=== PATIENT | male | born 1975 | race Caucasian/White ===

== ENCOUNTER 2024-12-25 21:35 | Emergency (ER) | payer MEDICAID, SELFPAY ==
[2024-12-25 21:40] VITALS: BP 136/88; PULSE 57; RESP 16; TEMP 36.4; O2SAT 95
--- NOTE | 2024-12-25 22:15 | DI.CT_ITS ---
Exam(s) CT HEAD WO EXAM: CT HEAD WO CLINICAL HISTORY: vision changes. TECHNIQUE: Imaging Protocol: Axial computed tomography images with coronal and sagittal reformatted images were created and reviewed COMPARISON: No exams were available for comparison FINDINGS: Ventricles and Extra axial spaces: Normal in size and morphology for the patient's age. Hemorrhage: None. Cerebral parenchyma: There are parenchymal calcifications seen in the basal ganglia bilaterally and in the periventricular tissues adjacent to the anterior horn of the right lateral ventricle. There is no mass effect. No acute territorial infarct or acute mass effect is seen. Midline shift: None. Brainstem/Cerebellum: Normal. Calvarium: Normal. Visualized Paranasal sinuses/Mastoids: Clear. Soft Tissues: Unremarkable. IMPRESSION: 1. No acute intracranial process. 2. Parenchymal calcifications as described above. These are nonspecific. If further imaging is warranted, an MRI may be considered. 3. The preliminary [facility] report was reviewed. RADIATION DOSE DELIVERED: 867.55mGy.cm Total DLP DATA REPOSITORY: All CT scans at this facility are submitted to the National Radiology Data Registry (NRDR) Dose Index Registry (DIR) with the [employer] (ACR). RADIATION OPTIMIZATION: All CT scans at this facility use at least one of these dose optimization techniques: automated exposure control; mA and/or kV adjustment per patient size (includes targeted exams where dose is matched to clinical indication); or iterative reconstruction.
--- NOTE | 2024-12-25 22:22 | W.ED.GENAD ---
Discharge Plan Disposition Patient Disposition: Home Condition: Stable Discharge Details Clinical Impression: Alteration in vision Primary Care Provider: None,None ED Provider: Ehsan Cohen Home Meds and New Rx's Prescriptions: Continued ibuprofen [Advil] 200 mg Tablet 400 mg PO Q6H PRN acetaminophen 500 mg Capsule 1,000 mg PO Q6H PRN magnesium 500 mg tablet 500 mg PO DAILY albuterol sulfate [Ventolin HFA] 1 PUFF HFA aerosol inhaler 18 g Inhalation Q4H PRN PRN Discontinued [facility] Gummy Fish 35-25-5-113.5 mg tablet,chewable PO multivitamin Tablet 1 tab PO DAILY flaxseed 1,000 mg Capsule 1 mg PO DAILY No Action ascorbic acid (vitamin C) [Vitamin C] 500 mg Tablet 500 mg PO DAILY Discharge Instructions Additional Instructions: Your lab test was normal which screens for vasculitis. Your CAT scan did not show any concerning findings. I placed you on our follow-up list to try and see [facility] eye care as soon as possible. If you feel more ill or have new symptoms such as severe pain or vomiting return to the emergency department for reevaluation. HPI General Mode of arrival: ambulatory. Date/Time Provider Initiated Documentation: 12/25/24 21:37. Limitations to Documentation: no limitations. Information obtained by: patient. History of Present Illness 49 year old M presents to the emergency department with the chief complaint of left eye vision issue, Patient started experiencing this hour(s) (13) and it has been constant. No relieving factors improve symptom(s), No exacerbating factors reported . Patient did receive the following treatments prior to arrival, none Related Data Home Medications ?Medication ?Instructions ?Recorded ?Confirmed albuterol sulfate 90 mcg/actuation 18 g inhalation Q4H PRN PRN 06/15/12 12/25/24 aerosol inhaler (Ventolin HFA) acetaminophen 500 mg capsule 1,000 mg PO Q6H PRN 10/27/21 12/25/24 ascorbic acid (vitamin C) 500 mg 500 mg PO DAILY 10/27/21 12/25/24 tablet (Vitamin C) ibuprofen 200 mg tablet (Advil) 400 mg PO Q6H PRN 10/27/21 12/25/24 magnesium 500 mg tablet 500 mg PO DAILY 11/18/21 12/25/24 Allergies Allergy/AdvReac Type Severity Reaction Status Date / Time shellfish derived Allergy Severe Anaphylaxsi Unverified 12/25/24 21:47 s General Stated Complaint: EyeProblem PIETER: 3 Review of Systems All systems reviewed & are unremarkable except as noted in HPI and below Constitutional Constitutional: Denies chills and Denies fever(s) Eyes Eyes: Reports blurry vision, Reports change in vision and Denies loss of vision Gastrointestinal Gastrointestinal: Denies vomiting Neurologic Neurologic: Denies loss of vision Exam Const General: no acute distress Orientation: alert HENMT Head: normal to inspection Mouth: moist mucous membranes Eyes General: appearance normal, both eyes and all related structures Alignment and Position: alignment normal Periorbital: periorbital findings normal Eyelids: eyelids normal Conjunctivae: conjunctivae normal Sclera: sclerae normal Cornea: corneas normal Pupils: PERRL EOM: EOM intact bilaterally Direct ophthalmoscopy: normal light reflex, no papilledema and photophobia not present Neck Neck: normal visual inspection Resp Effort & Inspection: normal respiratory effort and able to speak in complete sentences Cardio Rate: regular rate Skin General skin exam: no rashes or lesions noted Neuro General: patient alert and patient oriented x3 Extrem General: normal to inspection Psych Mental Status: mental status grossly normal Course Vital Signs Vital signs: Vital Signs Temperature 36.4 C L 12/25/24 21:40 Pulse 57 L 12/25/24 21:40 Respiratory Rate 16 12/25/24 21:40 Blood Pressure 136/88 12/25/24 21:40 Pulse Oximetry 95 12/25/24 21:40 Temperature 36.4 C L 12/25/24 21:40 Temperature Source Oral 12/25/24 21:40 Pulse 57 L 12/25/24 21:40 Respiratory Rate 16 12/25/24 21:40 Blood Pressure 136/88 12/25/24 21:40 Blood Pressure Position Sitting 12/25/24 21:40 Pulse Oximetry 95 12/25/24 21:40 Oxygen Delivery Method Room Air 12/25/24 21:40 Oxygen Flow Rate 0 12/25/24 21:40 Pain Level 0 12/25/24 21:40 Medical Decision Making 49-year-old male with a history of asthma who states that he 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 Denies any symptoms in the right eye. Denies any loss of vision. He is 20/50 in the left eye and 20/20 in the right eye and states his left eye is normally mildly decreased from the right. No fevers or chills. He said a mild frontal headache but not severe and not the worst of his life. He is well-appearing. There is no visible deformity of the eye, there is no redness of the eye. He has no pain in the eye itself. He has full range of motion of the eye, pupils are equal and reactive to light, no temporal artery tenderness. The retina is normal in appearance, he has no hartman red spot to suggest central retinal artery occlusion, there is no blood under it to suggest retinal vein occlusion, no visible retinal detachment. Suspect he could have vitreous hemorrhage. He is concerned about a possible to have a CVA but advised that he usually affects both eyes when he has a CVA. I will check a CT head to exclude a mass though seems unlikely and also check a sed rate. Sed rate and head CT negative. Patient stable resting comfortably in bed in no distress. I am going to place him on the follow-up list to try and see [facility] eye care as soon as possible for recheck. Return precautions given Differential Diagnosis Differential Diagnosis: Vitreous hemorrhage, mass, floaters PFSH All Active Problems (Updated 12/25/24 @ 22:42 by Ehsan Cohen MD) Alteration in vision (Acute) Lumbar radiculopathy (Acute) Acute diverticulitis (Acute 04/25/14) Asthma (Chronic) Diverticulosis of colon (Chronic) H/O surgical procedure (Chronic) a. h/o inguinal hernia repair Diverticulitis large intestine (Acute) Diverticulitis (Acute) Medical History Asthma Diverticulosis Hypertension Low back pain Surgical History Colonoscopy - IV Sedation Repair of inguinal hernia Family History Father Myocardial infarction Social History Smoking/Tobacco Use Status: Never Smoking risk assessment performed?: Yes Alcohol Intake: never Drug use: Occasionally Substance use type: marijuana Housing: house Do you feel safe at home: Yes Do you feel safe in your relationship?: Yes
[2024-12-25 22:37] LABS: ESR 4 mm/hr (0-15)
--- NOTE | 2024-12-25 23:04 | DI.[facility]_ITS ---
PROCEDURE INFORMATION: Exam: CT Head Without Contrast Exam date and time: 12/25/2024 10:54 PM Age: 49 years old Clinical indication: Stroke-like symptoms; Visual disturbance TECHNIQUE: Imaging protocol: Computed tomography of the head without contrast. Other technique: STROKE PROTOCOL was implemented. COMPARISON: No relevant prior studies available. FINDINGS: Brain: Small parenchymal calcifications of the right head of the caudate, right frontal periventricular white matter, and bilateral globus pallidi. No intracranial hemorrhage or extra-axial fluid collection. No evidence of mass effect or midline shift. Wayne-white matter differentiation is intact. Cerebral ventricles: No ventriculomegaly. Paranasal sinuses: Unremarkable. No fluid levels. Mastoid air cells: Unremarkable. Bones: No acute calvarial fracture. Soft tissues: Scalp soft tissues are unremarkable. IMPRESSION: No acute intracranial pathology. ASPECTS score 10. Dictated and Authenticated by: Alexey Clinton MD. Orderin Vicki Moser MD
[2024-12-25 23:17] VITALS: BP 130/78; BP 136/88; PULSE 57; PULSE 60; RESP 16; TEMP 36.4; O2SAT 95; O2SAT 96
== END 2024-12-25 23:21 | disposition home or self-care (01) ==
LOC: ER 23:02
PROVIDERS: Emergency Provider Emergency Medicine
DX: H53.9 Unspecified visual disturbance (principal)
CPT/HCPCS: 99284; 99283; 36415; 85652; 70450

== ENCOUNTER 2025-01-27 16:13 | Emergency (ER) | payer MEDICAID, SELFPAY ==
[2025-01-27 16:14] VITALS: BP 165/109; PULSE 65; RESP 18; TEMP 36.2; O2SAT 98
--- NOTE | 2025-01-27 16:42 | W.ED.GENAD ---
Discharge Plan Disposition Patient Disposition: Home Condition: Stable Discharge Details Clinical Impression: Acute diverticulitis Primary Care Provider: None,None ED Provider: Jasen Leroy Home Meds and New Rx's Prescriptions: New amoxicillin-pot clavulanate 875-125 mg tablet 1 tab PO BID 10 Days Qty: 20 0RF ketorolac 10 mg tablet 10 mg PO QID 5 Days Qty: 20 0RF Rx Instructions: maximum total duration of 5 days from all oral, intranasal, or parenteral formulations Continued acetaminophen 500 mg Capsule 1,000 mg PO Q6H PRN Held ibuprofen [Advil] 200 mg Tablet 400 mg PO Q6H PRN Hold Instructions: Resume on 02/01/25. HOLD while on ketorolac Discharge Instructions Instructions: Ketorolac (Systemic), Diverticulitis, Amoxicillin and Clavulanate Additional Instructions: You were seen in the emergency department for abdominal pain onset today, CT shows acute diverticulitis without perforation or abscess, you have elevated white blood cells which is expected in the setting of this acute infection but your markers of sepsis are negative. Please watch yourself carefully and eat a bland diet over the next couple days, take 1000 mg of Tylenol every 6 hours, care home between Tylenol dosings please take the prescribed Toradol for anti-inflammatory effect, switch to ibuprofen once you run out of these after 5 days. Take the prescribed Augmentin as directed, return for any severe acute worsening especially with intractable nausea or vomiting or developing worsening abdominal pain with fever HPI General Date/Time Provider Initiated Documentation: 01/27/25 16:26. HPI Narrative: 49 year-old female presents to ED today by POV/ambulating with a chief complaint of LLQ abdominal pain, some intermittent sharp pains to scrotum with onset this morning. Quality described as worsened throughout the day, questions if this is diverticulitis as last exaceration was years ago, no radiation to chest pain, vomiting, complete constipation, endorses diarrhea, denies shortness of breath or fever. Severity is described as moderate. Palliating factors include nothing specific. Provoking factors include nothing specific. Events leading up to the incident/Associated Symptoms: Patient questions if this is from some fruit compote he had last night. Patient not anticoagulated. Related Data Home Medications ?Medication ?Instructions ?Recorded ?Confirmed acetaminophen 500 mg capsule 1,000 mg PO Q6H PRN 10/27/21 01/27/25 ibuprofen 200 mg tablet (Advil) 400 mg PO Q6H PRN 10/27/21 01/27/25 Held on 01/27/25. Instructions: Resume on 02/01/25. HOLD while on ketorolac amoxicillin 875 mg-potassium 1 tab PO BID 10 days #20 tabs 01/27/25 clavulanate 125 mg tablet ketorolac 10 mg tablet 10 mg PO QID 5 days #20 tabs 01/27/25 Previous Rx's ?Medication ?Instructions ?Recorded amoxicillin 875 mg-potassium 1 tab PO BID 10 days #20 tabs 01/27/25 clavulanate 125 mg tablet ketorolac 10 mg tablet 10 mg PO QID 5 days #20 tabs 01/27/25 Allergies Allergy/AdvReac Type Severity Reaction Status Date / Time shellfish derived Allergy Severe Anaphylaxsi Unverified 01/27/25 16:18 s General Stated Complaint: Abd Prob PIETER: 3 Review of Systems All systems reviewed & are unremarkable except as noted in HPI and below Exam Narrative Exam Narrative: GENERAL APPEARANCE: Well-nourished, non-toxic, awake and alert, atraumatic, no acute distress. SKIN: Warm, pink, dry, intact, without rashes/lesions/ulcerations. HEAD: Normocephalic, atraumatic, normal hair distribution for gender/age. EYES: Normal conjunctiva, no exudates on lids/lashes. ENT: Nares patent, no circumoral cyanosis, no facial swelling NECK: Supple, trachea midline, painless cervical ROM. LUNGS/CHEST: Lungs CTA bilaterally- no rhonchi/rales/wheezes diffusely, non-labored respirations, normal A/P diameter, symmetrical expansion, no chest wall deformity HEART (CV/PV): Regular rate and rhythm without murmur, no peripheral edema, no JVD. ABDOMEN: Soft, non-distended, no guarding, left lower quadrant abdominal tenderness with rebound tenderness, no Rovsing's, no McBurney's point tenderness, negative King sign, no CVA tenderness percussion bilaterally. MSK: Normal ROM, no swelling/deformity to bilateral UEs or LEs, moving all extremities without weakness, no cyanosis, spine midline without tenderness, normal curvature. NEURO: Mental Status AAOx4 - alert to person, place, time, events No facial droop, no forehead involvement. Motor: No focal weakness - strength 5/5 in bilateral UEs and LEs, proximal and distal, symmetric. Sensory: sensation intact to light touch globally. Gait normal: patient ambulated without ataxia into ED room. PSYCH: euthymic, cooperative, pleasant, appropriate speech Course Vital Signs Vital signs: Vital Signs Temperature 36.2 C L 01/27/25 16:14 Pulse 65 01/27/25 16:14 Respiratory Rate 18 01/27/25 16:14 Blood Pressure 165/109 H 01/27/25 16:14 Pulse Oximetry 98 01/27/25 16:14 Temperature 36.2 C L 01/27/25 16:14 Pulse 65 01/27/25 16:14 Respiratory Rate 18 01/27/25 16:14 Blood Pressure 165/109 H 01/27/25 16:14 Pulse Oximetry 98 01/27/25 16:14 Oxygen Delivery Method Room Air 01/27/25 16:14 Oxygen Flow Rate 0 01/27/25 16:14 Pain Level 8 01/27/25 16:14 Medical Decision Making This dictation utilizes [id number] dictation software and may contain unedited grammatical errors. 49 year-old female presents to ED today by POV/ambulating with a chief complaint of LLQ abdominal pain, some intermittent sharp pains to scrotum with onset this morning. Quality described as worsened throughout the day, questions if this is diverticulitis as last exaceration was years ago, no radiation to chest pain, vomiting, complete constipation, endorses diarrhea, denies shortness of breath or fever. Severity is described as moderate. Palliating factors include nothing specific. Provoking factors include nothing specific. Events leading up to the incident/Associated Symptoms: Patient questions if this is from some fruit compote he had last night. Patients' medical history: History of bilateral mesh hernia repairs, history of diverticulitis, lumbar radiculopathy. Family and social history: Noncontributory has reduced his meat intake since prior episode of diverticulitis. Pertinent exam findings / vital signs include left lower quadrant abdominal tenderness with rebound tenderness, no Rovsing's, no McBurney's point tenderness, negative King sign, no CVA tenderness percussion bilaterally, benign cardiopulmonary exam, neuro intact, nontoxic and afebrile. Differential / pathologies of concern include diverticulitis, gastroenteritis, colitis, less likely SBO, unlikely hernia. Diagnostic studies of: - CBC, CMP, lactate, UA, lipase, magnesium, CT ABD/pelvis with contrast. - CBC shows leukocytosis to 17.06 without left shift - Lactate negative at 1.6 - CMP grossly unremarkable with mildly low magnesium, mildly low calcium, would replete with p.o. intake and multivitamin - UA is benign - Lipase negative - CT shows an uncomplicated sigmoid diverticulitis Interventions of: - 1 L IVF NS, 1 g IV Tylenol, 15 mg IV Toradol, 4 mg IV Zofran, 1 tablet of p.o. Augmentin with prescription to follow as well as prescription for Toradol. ED Course/Assessment/Plan: 49-year-old male presents with onset of moderate left lower abdominal pain today, questions diverticulitis with his history, CT shows uncomplicated sigmoid diverticulitis he does have leukocytosis but has no evidence of abscess or microperforations, his vitals are stable and nontoxic, counseled him on bland diet and prescription for Toradol and Augmentin with strict return criteria for any severe increase in pain especially fever or any other emergent concerns. Findings not consistent with peritoneal abdomen, microperforation or abscess, SBO, sepsis. Disposition of acute diverticulitis. Patient verbalized understanding of the plan and return to ED criteria and engaged in shared decision making. Medical Records Medical records reviewed: Yes I reviewed the patient's medical records. Imaging Data Radiologic Study: Attestation: I personally reviewed and interpreted this imaging study as follows: Imaging: CT Scan Radiologist's impression: EXAM: CT ABDOMEN PELVIS W CLINICAL HISTORY: LLQ tenderness. TECHNIQUE: Imaging Protocol: Axial computed tomography images with coronal and sagittal reformatted images were created and reviewed CONTRAST MATERIAL: Intravenous: Omnipaque 350 Contrast volume:75 ml Oral: no COMPARISON: CT ABD PELVIS WITH CONTRAST from 07/21/2016 FINDINGS: ABDOMEN and PELVIS: Lung Bases: No acute findings. Stable right lower lobe bronchiectasis. Liver: Normal density. No suspicious mass. Gallbladder and biliary tract: No radiodense calculus. No wall thickening or pericholecystic fluid. No biliary dilation. Pancreas: Normal density. No abnormal calcifications or inflammatory process. No evidence of mass. Spleen: Normal. Kidneys: Normal size, contour and axis. No radiodense stones. No obstructive uropathy. No suspicious masses seen. Adrenal glands: No masses seen. Vasculature: Abdominal aorta non-dilated. Soft tissues: Unremarkable. Bladder: Mild diffuse wall thickening. No calculi.No focal mass. Bowel: No obstruction. Severe diverticulosis of the descending and sigmoid colon. Wall thickening of the sigmoid with surrounding stranding, consistent with diverticulitis. No perforation or abscess. Appendix normal. Peritoneal cavity: No ascites. No focal collection. No free air. Bones: Unremarkable for age. Reproductive organs: Mildly enlarged prostate. Lymph nodes: No pathologically enlarged lymph nodes. IMPRESSION:: Diverticulitis of the sigmoid colon. No perforation or abcess. Findings called to ER provider. Lab Data Lab results reviewed: Yes I reviewed the patient's lab results. Labs: Laboratory Tests Range/Units 01/27/25 01/27/25 01/27/25 17:02 17:25 17:49 WBC (4.4-10.8) 10^3/uL 17.06 H RBC (4.36-5.78) 10^6/uL 5.81 H Hgb (13.5-17.5) g/dL 16.8 Hct (40.0-50.0) % 49.2 MCV (80-95) fL 85 MCH (27.0-33.0) pg 28.9 MCHC (32.0-36.0) % 34.1 RDW (11.8-14.1) % 13.1 Plt Count (130-400) 10^3/uL 217 MPV (8.0-11.0) fL 10.6 Immature Gran % % 0.5 Neutrophils % % 86.6 Lymphocytes % % 6.6 Monocytes % % 5.8 Eosinophils % % 0.1 Basophils % % 0.4 Nucleated RBC % (0.0-0.3) % 0.0 Absolute Neutrophils (1.2-6.7) 10^3/uL 14.77 H Absolute Lymphocytes (1.2-3.4) 10^3/uL 1.13 L Absolute Monocytes (0.1-0.8) 10^3/uL 0.99 H Absolute Eosinophils (0.0-0.7) 10^3/uL 0.02 Absolute Basophils (0.0-0.2) 10^3/uL 0.07 VBG Lactate (<or=2.0) mmol/L 1.6 Sodium Cancelled 136 Potassium Cancelled 4.0 Chloride Cancelled 101 Carbon Dioxide Cancelled 27.2 Anion Gap Cancelled 7.8 BUN Cancelled 12 Creatinine Cancelled 1.0 Est GFR (CKD-EPI 2020) Cancelled 91.69 Glucose Cancelled 115 H Calcium Cancelled 8.1 L Magnesium Cancelled 1.7 L Total Bilirubin Cancelled 0.8 AST Cancelled 18 ALT Cancelled 28 Alkaline Phosphatase Cancelled 118 H Total Protein Cancelled 7.2 Albumin Cancelled 3.7 Lipase Cancelled 34 Urine Color (Yellow) Yellow Urine Clarity (Clear) Clear Urine pH (5-8) 5.5 Ur Specific [place] (1.005-1.025) 1.010 Urine Protein (Neg-Trace) mg/dL Negative Urine Ketones (Negative) mg/dL Trace H Urine Blood (Negative) Trace-lysed H Urine Nitrite (Negative) Negative Urine Bilirubin (Negative) Negative Urine Urobilinogen (Up to 0.2) mg/dL 0.2 Ur Leukocyte Esterase (Negative) Negative Urine RBC (0-2) HPF 0-2 Urine WBC (0-5) HPF Negative Ur Epithelial Cells (Negative) HPF Rare Urine Crystals (Negative) HPF Negative Urine Bacteria (Negative) HPF Negative Urine Casts (Negative) LPF Negative Urine Mucus (Negative) Negative Ur Culture Indicated? No Urine Glucose (Negative) mg/dL Negative PFSH All Active Problems (Updated 01/27/25 @ 18:45 by VERONICA Ernandez) Lumbar radiculopathy (Acute) Acute diverticulitis (Acute 04/25/14) Asthma (Chronic) Diverticulosis of colon (Chronic) H/O surgical procedure (Chronic) a. h/o inguinal hernia repair Diverticulitis large intestine (Acute) Diverticulitis (Acute) Medical History Asthma Diverticulosis Hypertension Low back pain Surgical History Colonoscopy - IV Sedation Repair of inguinal hernia Family History Father Myocardial infarction Social History Smoking/Tobacco Use Status: Never Smoking risk assessment performed?: Yes Alcohol Intake: never Drug use: Occasionally Substance use type: marijuana Housing: house Do you feel safe at home: Yes Do you feel safe in your relationship?: Yes
[2025-01-27] MEDS: Normal Saline 1,000 ML 1000 ML IV (16:57)
[2025-01-27] MEDS: ACETAMINOPHEN 1,000 MG/100 ML BAG 400 MG IVPB (16:58)
[2025-01-27] MEDS: Ketorolac 15 MG/ML VIAL IVP (16:58)
[2025-01-27] MEDS: Ondansetron 4 MG/2 ML VIAL IVP (16:59)
[2025-01-27 17:08] LABS: Abs Immature Grans 0.08 10^3/uL (0.0-0.06); HCT 49.2 % (40.0-50.0); HGB 16.8 g/dL (13.5-17.5); Immature Grans % 0.5 %; MCH 28.9 pg (27.0-33.0); MCHC 34.1 % (32.0-36.0); MCV 85 fL (80-95); MPV 10.6 fL (8.0-11.0); Platelet Count 217 10^3/uL (130-400); RBC 5.81 10^6/uL (4.36-5.78); RDW 13.1 % (11.8-14.1); RDW-SD 39.8 fL; WBC 17.06 10^3/uL (4.4-10.8)
[2025-01-27] MEDS: Omnipaque 350 MG/ML 100 ML BTL IJ (17:12)
[2025-01-27] MEDS: Normal Saline - Diluent 50 ML VIAL IJ (17:12)
[2025-01-27] MEDS: Normal Saline Flush 10 ML SYR IVP (17:12)
--- NOTE | 2025-01-27 17:20 | DI.CT_ITS ---
Exam(s) CT ABDOMEN PELVIS W EXAM: CT ABDOMEN PELVIS W CLINICAL HISTORY: LLQ tenderness. TECHNIQUE: Imaging Protocol: Axial computed tomography images with coronal and sagittal reformatted images were created and reviewed CONTRAST MATERIAL: Intravenous: Omnipaque 350 Contrast volume:75 ml Oral: no COMPARISON: CT ABD PELVIS WITH CONTRAST from 07/21/2016 FINDINGS: ABDOMEN and PELVIS: Lung Bases: No acute findings. Stable right lower lobe bronchiectasis. Liver: Normal density. No suspicious mass. Gallbladder and biliary tract: No radiodense calculus. No wall thickening or pericholecystic fluid. No biliary dilation. Pancreas: Normal density. No abnormal calcifications or inflammatory process. No evidence of mass. Spleen: Normal. Kidneys: Normal size, contour and axis. No radiodense stones. No obstructive uropathy. No suspicious masses seen. Adrenal glands: No masses seen. Vasculature: Abdominal aorta non-dilated. Soft tissues: Unremarkable. Bladder: Mild diffuse wall thickening. No calculi.No focal mass. Bowel: No obstruction. Severe diverticulosis of the descending and sigmoid colon. Wall thickening of the sigmoid with surrounding stranding, consistent with diverticulitis. No perforation or abscess. Appendix normal. Peritoneal cavity: No ascites. No focal collection. No free air. Bones: Unremarkable for age. Reproductive organs: Mildly enlarged prostate. Lymph nodes: No pathologically enlarged lymph nodes. IMPRESSION:: Diverticulitis of the sigmoid colon. No perforation or abcess. Findings called to ER provider. RADIATION DOSE DELIVERED: Total DLP DATA REPOSITORY: All CT scans at this facility are submitted to the National Radiology Data Registry (NRDR) Dose Index Registry (DIR) with the [employer] ([employer]). RADIATION OPTIMIZATION: All CT scans at this facility use at least one of these dose optimization techniques: automated exposure control; mA and/or kV adjustment per patient size (includes targeted exams where dose is matched to clinical indication); or iterative reconstruction.
[2025-01-27 17:54] LABS: Glucose Negative (Negative)
[2025-01-27 17:54] LABS: ALT 28 U/L (16-63); AST 18 U/L (15-37); Albumin 3.7 g/dL (3.4-5.0); Alkaline Phosphatase 118 U/L (46-116); Anion Gap 7.8 mmol/L (3-11); BUN 12 mg/dL (7-18); Bilirubin, Total 0.8 mg/dL (0.2-1.0); CO2 27.2 mmol/L (21.0-32.0); Calcium 8.1 mg/dL (8.5-10.1); Chloride 101 mmol/L (98-107); Estimated GFR 91.69 (mL/min/1.73m2); Glucose 115 mg/dL (74-106); Lipase 34 U/L (<78); Magnesium 1.7 mg/dL (1.8-2.4); Potassium 4.0 mmol/L (3.5-5.1); Sodium 136 mmol/L (136-145); Total Protein 7.2 g/dL (6.4-8.2)
[2025-01-27 18:05] LABS: RBC 0-2 HPF (0-2); WBC Negative HPF (0-5)
[2025-01-27 18:06] VITALS: BP 169/74; PULSE 76; O2SAT 98
[2025-01-27 18:06] LABS: C & S Indicated? No
[2025-01-27] MEDS: Amoxicillin 875/Clav. 125 TAB PO (18:51)
== END 2025-01-27 19:41 | disposition home or self-care (01) ==
PROVIDERS: Emergency Provider Physician Assistant
DX: K57.92 Diverticulitis of intestine, part unspecified, without perforation or abscess without bleeding (principal); R10.32 Left lower quadrant pain; R19.7 Diarrhea, unspecified
CPT/HCPCS: 80053; 83690; 96365; 96375; 99285; 74177; 81003; 81015; 83605; 83735; 85025; 99284; J0131; J1885; J2405; J3490